=== PATIENT | male | born 1945 | race Caucasian/White ===

== ENCOUNTER 2019-06-30 22:39 | Observation (INO) | payer MEDICARE, BC, SELFPAY ==
[2019-06-30 22:46] VITALS: BMI 33.0
[2019-06-30 23:15] LABS: Add Manual Diff / Slide Review NO; Basophils Absolute Auto 0 /uL (0-100); Basophils Percent Auto 0.5 % (0-2); Eosinophils Absolute Auto 0 /uL (0-450); Eosinophils Percent Auto 0.7 % (2-4); Hematocrit 36.6 % (41-53); Lymphocytes Absolute Auto 600 /uL (1100-4500); Lymphocytes Percent Auto 9.7 % (25-40); Mean Corpuscular HGB Conc 32.7 % (30-36); Mean Corpuscular Hemoglobin 30.6 PG (26-34); Mean Corpuscular Volume 93.6 fL (80-100); Monocytes Absolute Auto 700 /uL (0-900); Neutrophils Absolute Auto 4700 /uL (1500-7000); Neutrophils Percent Auto 77.1 % (50-75); Platelet Count 168 X10^3/uL (150-400); Red Cell Distribution Width 17.8 % (11.6-14.8); White Blood Cell Count 6.1 X10^3/uL (4.5-11.0)
[2019-06-30 23:19] LABS: INR 3.6 (0.9-1.3); Prothrombin Time 40.8 SECONDS (10.1-12.7)
[2019-06-30 23:22] LABS: PTT Partial Thromboplastin Tim 51 SECONDS (26.4-36.2)
[2019-07-01] VITALS (12 sets, daily range): BP systolic 138–154; BP diastolic 67–97; PULSE 92–108; RESP 16–20; TEMP 36.5–38.3; O2SAT 93–97; BMI 33.5
[2019-07-01] MEDS: OXYMETAZOLINE NASAL SPRAY 30 ML 2 SPRAYS NASAL (00:09)
[2019-07-01] MEDS: TRANEXAMIC ACID 1,000 MG VIAL 1000 MG MM (00:11)
[2019-07-01] MEDS: LIDOCAINE 2% (UROJET) 5 ML GEL TOP (00:12)
--- NOTE | 2019-07-01 00:23 | ED_ITS ---
HPI - Epistaxis General Chief complaint: Nasal Problem Stated complaint: nose bleed Time Seen by Provider: 06/30/19 23:33 Source: patient Mode of arrival: Ambulatory Limitations: no limitations History of Present Illness HPI Narrative: Chief complaint: Epistaxis History of present illness: The patient is a 73-year-old male who has a history of atrial fibrillation for which she is on warfarin. On June 14 the patient was seen in [facility] by an ENT doc for persistent nosebleed. A balloon was placed in his nose in the emergency department and was seen in follow-up by ENT to remove the balloon. The bleeding had stopped and no cauterization was performed. Today the patient developed profuse nose bleed from the left nares and is on his warfarin. The patient denies any injury or fall. The nose just started to spontaneously bleed. The patient denies a history of asthma and diabetes mellitus but admits to history of hypertension previous myocardial infarction and COPD. The patient used to smoke 40 years ago. The patient complains that he has had a persisting congested cough and his chest is rattling. He denies any fever chills or sweats. He has had a nonproductive cough without any significant shortness of breath more than usual. He has had no chest pain palpitations dizziness abdominal pain nausea vomiting diarrhea or troubles urinating. Related Data Home Medications Medication Instructions Recorded Confirmed Multi Vitamin 1 tab PO DAILY 07/01/19 07/01/19 PreserVision AREDS-2 2 tab PO DAILY 07/01/19 07/01/19 allopurinol 100 mg PO DAILY 07/01/19 07/01/19 cyanocobalamin (vitamin B-12) 1,000 mcg PO DAILY 07/01/19 07/01/19 [Vitamin B-12] diltiazem HCl [Cartia XT] 120 mg PO DAILY 07/01/19 07/01/19 ferrous sulfate 1 tab PO DAILY 07/01/19 07/01/19 gabapentin See Rx Instructions .ROUTE .COMPLEX 07/01/19 07/01/19 lisinopril 5 mg PO DAILY 07/01/19 07/01/19 magnesium oxide 800 mg PO DAILY 07/01/19 07/01/19 mycophenolate mofetil [CellCept] 500 mg PO BID 07/01/19 07/01/19 omeprazole 20 mg PO Q OTHER DAY 07/01/19 07/01/19 prednisone 5 mg PO DAILY 07/01/19 07/01/19 rosuvastatin 20 mg PO BEDTIME 07/01/19 07/01/19 tacrolimus 0.5 mg PO QPM 07/01/19 07/01/19 tacrolimus 1 mg PO QAM 07/01/19 07/01/19 tamsulosin 0.4 mg PO DAILY 07/01/19 07/01/19 torsemide 40 mg PO DAILY 07/01/19 07/01/19 Allergies Allergy/AdvReac Type Severity Reaction Status Date / Time cephalexin [From Keflex] Allergy Verified 06/30/19 22:45 Review of Systems Review of Systems ROS Unobtainable: All systems reviewed & are unremarkable except as noted in HPI and below Patient History Medical History Chronic atrial fibrillation (Acute) Chronic bronchitis (Inactive) Current use of intermediate card tender anticoagulation (Acute) History of renal dialysis (Acute) Hyperlipidemia (Acute) Peripheral neuropathy (Acute) Recurrent epistaxis (Acute) Surgical History History of ankle surgery (Acute) History of kidney transplant (Acute) Family History Father Cancer Mother Vascular disease Blood clot in vein Brother Obese Social History household members: spouse Smoking Status: Never smoker alcohol intake: current Smoking Status: Never smoker alcohol intake frequency: 3 or more drinks per day Substance Use Type: does not use Exam Narrative Exam Narrative: PHYSICAL EXAM: CONSTITUTIONAL: Awake, Alert, Oriented, Coherent, Cooperative in mild to moderate distress with his nose packed with gauze and a clamp placed on his nose. On initial exam there was no blood draining in the posterior pharynx.. HEAD: AT/NC EENT: PERRL, FROM of eyes, no discharge, Evidence of epistaxis but bleeding seemed to stop and not be active on initial exam. Oral mucosa is moist and pink, posterior pharynx is without erythema or exudate. NECK: Supple, no obvious JVD, Trachea is midline without stridor, no palpable LN or masses. SPINE: No gross deformity, no palpable tenderness of the cervical, thoracic, l umbar or sacral spine. No CVA tenderness. THORAX: No deformity, retractions, chest wall tenderness, subcutaneous air or crepitice. LUNGS: Inspiratory crackles noted in the right lateral mid lung field and posterior lung field with a few expiratory rhonchi that cleared with coughing. The crackles did not. HEART: Rhythm was irregular irregular with variable distant S1-S2. The patient was tachycardic. ABDOMEN: Soft, non-tender, normal bowel sounds without guarding, rebound, rigidity or palpable mass EXTREMITIES: No edema, cyanosis, deformity or tenderness. SKIN: No rash, bruising, petechiae or purpura. NEURO: Awake, alert, oriented, conversive, cranial nerves II-XII are symmetrical and normal, moves all 4 extremities and is ambulatory Initial Vital Signs Initial Vital Signs: Vital Signs Pulse Rate 104 H 07/01/19 01:00 Respiratory Rate 16 07/01/19 01:00 Pulse Oximetry 94 07/01/19 01:00 Course Course Course Narrative: 0023: I initially examined the patient and he had a nasal pa cking had no blood in his posterior pharynx. After I set the patient up to listen to his lungs he started bleeding again to the posterior pharynx. When I returned with the arm rhino rockets he was still bleeding and filled a basin with blood. He denied any tachycardia being dizzy or lightheaded. The balloons of the rhino rockets were saturated with transient transaminitis acid and inserted in his right and left naris and inflated. 5 mg of vitamin K was ordered for the patient and fresh frozen plasma because of the profuse bleeding. He is on warfarin and his protime is 40 0.8 seconds a repeat hemoglobin hematocrit will be ordered on the patient. An IV will be started on the patient and I had bolus of normal saline administered 0033: The patient has been coughing incessantly. His bleeding seems to have slowed and is not feeling a basin or having profuse bleeding down his posterior pharynx after his nose was packed bilaterally with rhino rockets saturated with TXA 0234 I discussed the patient with with Dr. Fraire that ears nose throat doctor who was on-call and has agreed to consult the patient. I spoke with Dr. Spaulding who has agreed to admit the patient and evaluate his COPD chronic bronchitis cough and his warfarin coagulopathy causing his epistaxis. The patient will be admitted observation status. Orders Ordered: Discontinued Medications Acetaminophen (Tylenol) 650 mg PO Q6HR PRN PRN Reason: Fever/Mild Pain (1-3) Last Admin: 07/01/19 05:05 Dose: 650 mg Documented by: GELA Albuterol (Ventolin) 2.5 mg INH [id number] PRN PRN Reason: Shortness Of Breath Albuterol/Ipratropium (Duoneb) 3 ml INH NOW ONE Stop: 07/01/19 00:27 Last Admin: 07/01/19 00:59 Dose: 3 ml Documented by: SATURNINO Albuterol/Ipratropium (Duoneb) 3 ml INH RTQ6HR PRN PRN Reason: Shortness Of Breath Allopurinol (Zyloprim) 100 mg PO DAILY [facility] Last Admin: 07/01/19 13:15 Dose: 100 mg Documented by: HOMAR Cyanocobalamin (Vitamin B-12) 1,000 mcg PO DAILY [facility] Last Admin: 07/01/19 13:14 Dose: 1,000 mcg Documented by: HOMAR Diltiazem HCl (Cardizem Cd) 120 mg PO DAILY [facility] Last Admin: 07/01/19 13:15 Dose: 120 mg Documented by: HOMAR Ferrous Sulfate (Ferrous Sulfate) 325 mg PO DAILY [facility] Last Admin: 07/01/19 13:14 Dose: 325 mg Documented by: HOMAR Gabapentin (Neurontin) 300 mg PO BID@1500,2100 [facility] Last Admin: 07/01/19 13:25 Dose: Not Given Documented by: HOMAR Gabapentin (Neurontin) 600 mg PO DAILY [facility] Last Admin: 07/01/19 13:14 Dose: 600 mg Documented by: HOMAR Tranexamic Acid 1,000 mg/ (Sodium Chloride) 100 mls @ 400 mls/hr IV NOW ONE Stop: 06/30/19 23:59 Last Admin: 07/01/19 02:30 Dose: Not Given Documented by: TAVO Phytonadione 5 mg/ Dextrose 50.5 mls @ 101 mls/hr IV NOW ONE Stop: 07/01/19 00:20 Last Infusion: 07/01/19 02:27 Dose: 0 mls/hr Documented by: Admin: 07/01/19 01:02 Dose: 101 mls/hr Documented by: TAVO Sodium Chloride (Normal Saline 0.9%) 1,000 mls @ 1,000 mls/hr IV BOLUS ONE Stop: 07/01/19 01:24 Last Infusion: 07/01/19 03:39 Dose: 0 mls/hr Documented by: Admin: 07/01/19 01:30 Dose: 1,000 mls/hr Documented by: TAVO Lidocaine HCl (Xylocaine Jelly 2%) 1 ml TOP NOW ONE Stop: 07/01/19 00:02 Last Admin: 07/01/19 02:29 Dose: Not Given Documented by: TAVO Lidocaine HCl (Urojet) 5 ml TOP NOW ONE Stop: 07/01/19 00:05 Last Admin: 07/01/19 00:12 Dose: 5 ml Documented by: DEVENDRA Lisinopril (Zestril) 5 mg PO DAILY [facility] Last Admin: 07/01/19 13:14 Dose: 5 mg Documented by: HOMAR Lutein (Ocuvite/Lutein) 2 cap PO DAILY [facility] Last Admin: 07/01/19 13:15 Dose: 2 cap Documented by: HOMAR Magnesium Oxide (Mag Ox) 800 mg PO DAILY [facility] Last Admin: 07/01/19 13:15 Dose: 800 mg Documented by: HOMAR Methylprednisolone (Solu-Medrol 125 Mg Vial) 125 mg IV NOW ONE Stop: 07/01/19 00:27 Last Admin: 07/01/19 01:02 Dose: 125 mg Documented by: TAVO Mycophenolate Mofetil (Cellcept) 500 mg PO BID [facility] Last Admin: 07/01/19 13:16 Dose: 500 mg Documented by: HOMAR Naloxone HCl (Narcan) 0.2 mg IV Q2MIN PRN PRN Reason: Opiate Reversal Ondansetron HCl (Zofran) 4 mg IV Q8HR PRN PRN Reason: Nausea And Vomiting Oxymetazoline HCl (Afrin) 2 sprays NASAL NOW ONE Stop: 07/01/19 00:07 Last Admin: 07/01/19 00:09 Dose: 2 sprays Documented by: DEVENDRA Prednisone (Deltasone) 5 mg PO DAILY [facility] Last Admin: 07/01/19 13:15 Dose: 5 mg Documented by: HOMAR Rosuvastatin Calcium (Crestor) 20 mg PO BEDTIME [facility] Sodium Chloride (Normal Saline 0.9% Flush) 10 ml IV PRN PRN PRN Reason: Flush Last Admin: 07/01/19 13:16 Dose: 10 ml Documented by: HOMAR Sodium Chloride (Normal Saline 0.9% Flush) 10 ml IV BID [facility] Tacrolimus (Prograf) 1 mg PO DAILY [facility] Last Admin: 07/01/19 13:16 Dose: 1 mg Documented by: HOMAR Tacrolimus (Prograf) 0.5 mg PO BEDTIME [facility]I Tamsulosin HCl (Flomax) 0.4 mg PO DAILY [facility] Last Admin: 07/01/19 13:14 Dose: 0.4 mg Documented by: HOMAR Torsemide (Demadex) 40 mg PO DAILY [facility] Last Admin: 07/01/19 13:15 Dose: 40 mg Documented by: HOMAR Tranexamic Acid (Cyklokapron) 1,000 mg MM NOW ONE Stop: 07/01/19 00:02 Last Admin: 07/01/19 00:11 Dose: 1,000 mg Documented by: DEVENDRA Vital Signs Vital signs: Vital Signs - 8 hr 07/01/19 01:00 07/01/19 01:54 07/01/19 02:05 Temperature 99.3 F 99.8 F H Pulse Rate 104 H 101 H 103 H Respiratory Rate 16 19 19 Blood Pressure 138/78 146/70 H Pulse Oximetry 94 MDM - Epistaxis Medical Records Attestation: I reviewed the patient's medical records. Lab Data Attestation: I reviewed the patient's lab results. Result diagrams: 07/01/19 02:50 07/01/19 02:50 Labs: Lab Results 06/30/19 06/30/19 06/30/19 Range/Units 23:03 23:03 23:03 WBC 6.1 (4.5-11.0) X10^3/uL RBC 3.90 L (4.5-5.9) X10^6/uL Hgb 12.0 L (13.5-17.5) g/dL Hct 36.6 L (41-53) % MCV 93.6 (80-100) fL MCH 30.6 (26-34) PG MCHC 32.7 (30-36) % RDW 17.8 H (11.6-14.8) % Plt Count 168 (150-400) X10^3/uL Neut % (Auto) 77.1 H (50-75) % Lymph % (Auto) 9.7 L (25-40) % Grady % (Auto) 12.0 (3-14) % Eos % (Auto) 0.7 L (2-4) % Baso % (Auto) 0.5 (0-2) % Neut # (Auto) 4700 (9931-3045) /uL Lymph # (Auto) 600 L (8750-1270) /uL Grady # (Auto) 700 (0-900) /uL Eos # (Auto) 0 (0-450) /uL Baso # (Auto) 0 (0-100) /uL PT 40.8 H (10.1-12.7) SECONDS INR 3.6 H (0.9-1.3) APTT 51 H (26.4-36.2) SECONDS Sodium 138 (137-145) mmol/L Potassium 4.2 (3.4-5.1) mmol/L Chloride 100 (98-107) mmol/L Carbon Dioxide 27 (22-32) mmol/L BUN 28 H (9-20) mg/dL Creatinine 1.00 (0.66-1.25) mg/dL Estimated GFR > 60.0 (>60) mL/min BUN/Creatinine Ratio 28.0 H (6-22) Glucose 102 (80-110) mg/dL Calcium 11.6 H (8.4-10.2) mg/dL Magnesium (1.6-2.3) mg/dL Total Bilirubin 0.5 (0.2-1.3) mg/dL AST 26 (17-59) IU/L ALT 15 (<50) IU/L Alkaline Phosphatase 106 (38-126) U/L Troponin I < 0.012 (0.01-0.034) ng/mL NT-Pro-B Natriuret Pep 2390 H (<450) pg/mL Total Protein 7.3 (6.3-8.2) g/dL Albumin 4.4 (3.5-5.0) g/dL Globulin 2.9 (1.7-4.1) g/dL Albumin/Globulin Ratio 1.5 (1.0-2.8) Blood Type 07/01/19 07/01/19 07/01/19 Range/Units 00:40 00:40 02:50 WBC (4.5-11.0) X10^3/uL RBC (4.5-5.9) X10^6/uL Hgb 11.0 L (13.5-17.5) g/dL Hct 33.4 L (41-53) % MCV (80-100) fL MCH (26-34) PG MCHC (30-36) % RDW (11.6-14.8) % Plt Count (150-400) X10^3/uL Neut % (Auto) (50-75) % Lymph % (Auto) (25-40) % Grady % (Auto) (3-14) % Eos % (Auto) (2-4) % Baso % (Auto) (0-2) % Neut # (Auto) (3488-0214) /uL Lymph # (Auto) (5641-6016) /uL Grady # (Auto) (0-900) /uL Eos # (Auto) (0-450) /uL Baso # (Auto) (0-100) /uL PT (10.1-12.7) SECONDS INR (0.9-1.3) APTT (26.4-36.2) SECONDS Sodium (137-145) mmol/L Potassium (3.4-5.1) mmol/L Chloride (98-107) mmol/L Carbon Dioxide (22-32) mmol/L BUN (9-20) mg/dL Creatinine (0.66-1.25) mg/dL Estimated GFR (>60) mL/min BUN/Creatinine Ratio (6-22) Glucose (80-110) mg/dL Calcium (8.4-10.2) mg/dL Magnesium 1.9 (1.6-2.3) mg/dL Total Bilirubin (0.2-1.3) mg/dL AST (17-59) IU/L ALT (<50) IU/L Alkaline Phosphatase (38-126) U/L Troponin I (0.01-0.034) ng/mL NT-Pro-B Natriuret Pep (<450) pg/mL Total Protein (6.3-8.2) g/dL Albumin (3.5-5.0) g/dL Globulin (1.7-4.1) g/dL Albumin/Globulin Ratio (1.0-2.8) Blood Type O Positive 07/01/19 Range/Units 02:50 WBC (4.5-11.0) X10^3/uL RBC (4.5-5.9) X10^6/uL Hgb (13.5-17.5) g/dL Hct (41-53) % MCV (80-100) fL MCH (26-34) PG MCHC (30-36) % RDW (11.6-14.8) % Plt Count (150-400) X10^3/uL Neut % (Auto) (50-75) % Lymph % (Auto) (25-40) % Grady % (Auto) (3-14) % Eos % (Auto) (2-4) % Baso % (Auto) (0-2) % Neut # (Auto) (1754-1692) /uL Lymph # (Auto) (0756-4252) /uL Grady # (Auto) (0-900) /uL Eos # (Auto) (0-450) /uL Baso # (Auto) (0-100) /uL PT (10.1-12.7) SECONDS INR (0.9-1.3) APTT (26.4-36.2) SECONDS Sodium 136 L (137-145) mmol/L Potassium 4.1 (3.4-5.1) mmol/L Chloride 102 (98-107) mmol/L Carbon Dioxide 27 (22-32) mmol/L BUN 28 H (9-20) mg/dL Creatinine 0.80 (0.66-1.25) mg/dL Estimated GFR > 60.0 (>60) mL/min BUN/Creatinine Ratio 35.0 H (6-22) Glucose 117 H (80-110) mg/dL Calcium 10.8 H (8.4-10.2) mg/dL Magnesium (1.6-2.3) mg/dL Total Bilirubin (0.2-1.3) mg/dL AST (17-59) IU/L ALT (<50) IU/L Alkaline Phosphatase (38-126) U/L Troponin I (0.01-0.034) ng/mL NT-Pro-B Natriuret Pep (<450) pg/mL Total Protein (6.3-8.2) g/dL Albumin (3.5-5.0) g/dL Globulin (1.7-4.1) g/dL Albumin/Globulin Ratio (1.0-2.8) Blood Type ECG Data Attestation: I personally reviewed and interpreted this ECG as follows: Interpretation: The patient's EKG obtained at 0 0: 5A: 0 1 on July 01 reveals atrial fibrillation with a rapid ventricular response at 106. QRS is prolonged at 110 milliseconds. The patient has an occasional premature ventricular contraction. QTC is 393 milliseconds. The patient has a right axis deviation. He has nonspecific ST segment changes. There are no acute T-wave changes. She he has T-wave inversions in leads II 3. There is no evidence of acute ischemia at this time. Discharge Plan Departure Patient Disposition: Admitted as Observation Clinical Impression: Epistaxis, Chronic bronchitis, Acute exacerbation of chronic obstructive pulmonary disease Warfarin overdosage Qualifiers: Encounter type: initial encounter Injury intent: accidental or unintentional Qualified Code(s): T45.511A - Poisoning by anticoagulants, accidental (unintentional), initial encounter Discharge Date/Time: 07/01/19 04:21 Admit Date/Time: 07/01/19 03:48 Admit Provider: Altaf Spaulding
--- NOTE | 2019-07-01 00:26 | DI.RAD.S_ITS ---
PROCEDURE: XR CHEST 1V INDICATIONS: COPD persistent cough rales and rhonchi right lung TECHNIQUE: One view of the chest was acquired. COMPARISON: None. FINDINGS: Surgical changes and devices: None. Lungs and pleura: Lungs are clear. No pleural effusions or pneumothorax. Mediastinum: Mediastinal contours appear normal. Heart size is enlarged. There is aortic atherosclerosis. Bones and chest wall: No suspicious bony lesions. Overlying soft tissues appear unremarkable. IMPRESSION: Cardiomegaly without overt heart failure. No definite pneumonia. Dictated by: Miguel Angel Landin M.D. on 07/01/2019 at 0:31 Approved by: Miguel Angel Landin M.D. on 07/01/2019 at 0:35
[2019-07-01 00:44] LABS: Alanine Aminotransferase 15 IU/L (<50); Albumin 4.4 g/dL (3.5-5.0); Albumin Globulin Ratio 1.5 (1.0-2.8); Alkaline Phosphatase 106 U/L (38-126); Aspartate Aminotransferase 26 IU/L (17-59); Bilirubin Total 0.5 mg/dL (0.2-1.3); Blood Urea Nitrogen 28 mg/dL (9-20); Calcium 11.6 mg/dL (8.4-10.2); Carbon Dioxide 27 mmol/L (22-32); Chloride 100 mmol/L (98-107); Estimated Glomerular Filt Rate > 60.0 mL/min (>60); Globulin 2.9 g/dL (1.7-4.1); Glucose 102 mg/dL (80-110); HEMOLYSIS < 15 (0-50); Potassium 4.2 mmol/L (3.4-5.1); Sodium 138 mmol/L (137-145); Total Protein 7.3 g/dL (6.3-8.2)
[2019-07-01 00:56] LABS: NT-proBNP (BNP-Adult 18+) 2390 pg/mL (<450); Troponin I < 0.012 ng/mL (0.01-0.034)
[2019-07-01] MEDS: ALBUTEROL/IPRATROPIUM 3 ML AMPUL INH (00:59)
[2019-07-01] MEDS: methylPREDNISolone 125 MG/2 ML VIAL IV (01:02)
[2019-07-01] MEDS: PHYTONADIONE (VIT K1) 5 MG in DEXTROSE 5 % IN WATER 50 ML 101 ML IV (01:02)
[2019-07-01] MEDS: SODIUM CHLORIDE 0.9% 1,000 ML 1000 ML IV (01:30)
[2019-07-01 03:03] LABS: Hematocrit 33.4 % (41-53)
--- NOTE | 2019-07-01 03:44 | PM.HP.1 ---
History of Present Illness History of Present Illness Date Patient Seen: 07/01/19 Time Patient Seen: 03:20 Chief complaint: nose bleed Narrative: Mr. Peter Rendon is a 73-year-old male history significant for atrial fibrillation, long-term anticoagulation on Coumadin, hypertension, hyperlipidemia, COPD, neuropathy and kidney transplant who presents to the ER [facility] for recurrent epistaxis. Patient is visiting from [place] and has had prior nose bleeds most recently treated in [place] last week for which he had left over packing and saline. He packed his nose but continued to bleed therefore presented to the ER for treatment. The patient reports no recent illness, fevers or chills, nasal congestion or sore throat. He has had no chest pain or palpitations. He has history of COPD but indicates he does not routinely use bronchodilators. He denies recent cough or shortness of breath. He denies abdominal pain states he has been spitting out blood that has accumulated in the back throat. He has no heartburn and denies nausea vomiting, diarrhea or constipation. Denies difficulty urinating. He has a swollen left ankle since traumatic injury and surgery with chronic bilateral lower extremity edema left greater than right. Upon arrival to the ER the patient has a temperature 99.3?, heart rate of 104, blood pressure 138/78, respirations 16 saturating 94% on room air. Chest x-ray is obtained with findings of cardiomegaly without evidence of pulmonary edema or pneumonia. On laboratory analysis he has a white count of 6.1, hemoglobin of 12.0, hematocrit 36.6, platelets 168. His PT is 40.8 with an INR 3.6 and PTT of 51. On chemistries is electrolytes within normal range with a BUN of 28 and creatinine of 1.0 and a nonfasting glucose of 102. His LFTs are all within normal limits. He has an elevated proBNP at 2390 and a negative troponin at less than 0.012. In the ER the packing is removed with significant blood-loss for the ER provider filling of basin. Rhino rockets are inserted and the balloons inflated with no evidence of posterior bleeding. Patient is also treated with methylprednisolone and albuterol, vitamin K 5 mg, tranexmic acid and 1 unit of FFP for supratherapeutic INR. Dr. Fraire ENT was contacted by the ER provider and has agreed to consult. The patient is admitted to medicine service due to his multiple comorbidities for supratherapeutic INR and recurrent epistaxis. Patient History Medical History (Updated 07/01/19 @ 04:11 by [facility] Olmedo) Chronic atrial fibrillation (Acute) Chronic bronchitis (Inactive) Current use of assisted anticoagulation (Acute) History of renal dialysis (Acute) Hyperlipidemia (Acute) Peripheral neuropathy (Acute) Recurrent epistaxis (Acute) Surgical History (Updated 07/01/19 @ 04:11 by [facility] Olmedo) History of ankle surgery (Acute) History of kidney transplant (Acute) Family & Social History Family History (Updated 07/01/19 @ 04:12 by [facility] Olmedo) Father Cancer Mother Vascular disease Blood clot in vein Brother Obese Safety & Behavioral: Feels Safe in Current Yes Environment Tobacco & Substance use: Smoking Status Never smoker alcohol intake frequency 3 or more drinks per day Substance Use Type does not use Comment: The patient lives in a single family home in [place] with his to whom has been for 30 years. He endorses a history of his father dying the age of 50 from esophageal cancer, his mother 89 with vascular disease and blood clots. He has 1 brother who is obese but otherwise reportedly in good health. He has a children with no significant medical problems. Smoking: Patient is a former smoking quit at age 38 before which she smoked 1 pack per day. Alcohol: Patient endorses drinking 3 drinks per day. Substance use: Patient denies recreational pharmaceuticals, herbal or cannabis products. Advanced directives: The patient has formal advanced directive and states his wish to be FULL CODE. He designates his Sophie Smith to be his surrogate decision maker. Meds Home Medications and Allergies Home Medications Medication Instructions Recorded Confirmed Type Multi Vitamin 1 tab PO DAILY 07/01/19 07/01/19 History PreserVision AREDS-2 2 tab PO DAILY 07/01/19 07/01/19 History allopurinol 100 mg PO DAILY 07/01/19 07/01/19 History cyanocobalamin (vitamin B-12) 1,000 mcg PO DAILY 07/01/19 07/01/19 History [Vitamin B-12] diltiazem HCl [Cartia XT] 120 mg PO DAILY 07/01/19 07/01/19 History ferrous sulfate 1 tab PO DAILY 07/01/19 07/01/19 History gabapentin See Rx Instructions .ROUTE .COMPLEX 07/01/19 07/01/19 History lisinopril 5 mg PO DAILY 07/01/19 07/01/19 History magnesium oxide 800 mg PO DAILY 07/01/19 07/01/19 History mycophenolate mofetil [CellCept] 500 mg PO BID 07/01/19 07/01/19 History omeprazole 20 mg PO Q OTHER DAY 07/01/19 07/01/19 History prednisone 5 mg PO DAILY 07/01/19 07/01/19 History rosuvastatin 20 mg PO BEDTIME 07/01/19 07/01/19 History tacrolimus 0.5 mg PO QPM 07/01/19 07/01/19 History tacrolimus 1 mg PO QAM 07/01/19 07/01/19 History tamsulosin 0.4 mg PO DAILY 07/01/19 07/01/19 History torsemide 40 mg PO DAILY 07/01/19 07/01/19 History warfarin 5 mg PO DAILY 07/01/19 07/01/19 History Allergies Allergy/AdvReac Type Severity Reaction Status Date / Time cephalexin [From Keflex] Allergy Verified 06/30/19 22:45 Review of Systems Review of Systems Narrative: All systems reviewed and found unremarkable under discussed in the HPI above. Exam Vital Signs (past 8 hours): - 07/01/19 01:00 07/01/19 01:54 07/01/19 02:05 Temperature 99.3 F 99.8 F H Pulse Rate 104 H 101 H 103 H Respiratory Rate 16 19 19 Blood Pressure 138/78 146/70 H Pulse Oximetry 94 07/01/19 02:33 07/01/19 03:29 Temperature 99.9 F H 101 F H Pulse Rate 92 H Respiratory Rate 18 Blood Pressure 142/67 H Pulse Oximetry Oxygen Delivery Method Room Air Oxygen Flow Rate 0 Narrative Exam Narrative: GENERAL APPEARANCE: well developed, obese male with a BMI of 33.0, well-kempt, in no acute distress. HEENT: Normocephalic, PERRLA, conjunctiva clear, EOMs intact without nystagmus, bilateral bilateral rhino rockets in place, no active bleeding, no bleeding in the posterior pharynx, mucous membranes are moist and pink. NECK/THYROID: neck supple, no JVD, no carotid bruit, no thyromegaly, trachea midline. LYMPH NODES: no cervical or supraclavicular lymphadenopathy. SKIN: [facility], warm and dry, venous stasis changes bilateral lower extremities left greater than right HEART: Irregularly irregular rhythm, S1-S2, no murmur appreciated, laterally displaced PMI, no rubs or gallops, brisk capillary refill, 1+ right and 2+ left pedal edema. LUNGS: Mid expiratory wheeze right mid lung field, no coarseness, no basilar crackles, no cough on deep inspiration. CHEST: Symmetrical movement, no accessory muscle use, good tidal volume. ABDOMEN: Soft, round, tympanic to percussion, nontender to palpation, no guarding or peritoneal signs, no organomegaly, no flank tenderness, active bowel tones. EXTREMITIES: moves all extremities, strength is 5/5 and symmetrical, bilateral nonfunctional AV fistulas, no bruit or thrill. NEUROLOGIC: AAO x4, no focal neurologic deficits, cranial nerves II-XII grossly intact, neuropathy to mid lower leg. PSYCH: Good recall, linear thought process, cooperative, appropriate with stable behavior Objective Labs Result Diagrams: 07/01/19 02:50 06/30/19 23:03 Labs: Laboratory Results - last 24 hr 06/30/19 06/30/19 06/30/19 23:03 23:03 23:03 WBC 6.1 RBC 3.90 L Hgb 12.0 L Hct 36.6 L MCV 93.6 MCH 30.6 MCHC 32.7 RDW 17.8 H Plt Count 168 Neut % (Auto) 77.1 H Lymph % (Auto) 9.7 L Ballard % (Auto) 12.0 Eos % (Auto) 0.7 L Baso % (Auto) 0.5 Neut # (Auto) 4700 Lymph # (Auto) 600 L Ballard # (Auto) 700 Eos # (Auto) 0 Baso # (Auto) 0 PT 40.8 H INR 3.6 H APTT 51 H Sodium 138 Potassium 4.2 Chloride 100 Carbon Dioxide 27 BUN 28 H Creatinine 1.00 Estimated GFR > 60.0 BUN/Creatinine Ratio 28.0 H Glucose 102 Calcium 11.6 H Total Bilirubin 0.5 AST 26 ALT 15 Alkaline Phosphatase 106 Troponin I < 0.012 NT-Pro-B Natriuret Pep 2390 H Total Protein 7.3 Albumin 4.4 Globulin 2.9 Albumin/Globulin Ratio 1.5 Blood Type 07/01/19 07/01/19 00:40 02:50 WBC RBC Hgb 11.0 L Hct 33.4 L MCV MCH MCHC RDW Plt Count Neut % (Auto) Lymph % (Auto) Ballard % (Auto) Eos % (Auto) Baso % (Auto) Neut # (Auto) Lymph # (Auto) Ballard # (Auto) Eos # (Auto) Baso # (Auto) PT INR APTT Sodium Potassium Chloride Carbon Dioxide BUN Creatinine Estimated GFR BUN/Creatinine Ratio Glucose Calcium Total Bilirubin AST ALT Alkaline Phosphatase Troponin I NT-Pro-B Natriuret Pep Total Protein Albumin Globulin Albumin/Globulin Ratio Blood Type O Positive Assessment & Plan Assessment & Plan narrative: This is a 73-year-old male patient who is traveling and visiting [place] from [place]. He has experienced recurrent epistaxis last 1 week ago which time he had his nose packed in [place]. He had recurrent episode tonight with significant bleeding complicated by anticoagulation with a supratherapeutic INR at 3.6 on warfarin that he takes for atrial fibrillation. 1. Acute epistaxis, present on admission, active -Patient with recurrent epistaxis this evening last episode 1 week ago. Patient time to packing at home without success. -Rhino rockets braced bilateral nares with control of bleeding with no posterior bleeding noted. -Hemoglobin upon arrival was 12.0, on re-evaluation 3 hours later is 11.0. -Patient was supratherapeutic on INR, received vitamin K 5 mg, for S frozen plasma 1 unit and tranexamic acid 1000 mg IV. -Dr. Fraire, ENT, has been contacted through the emergency department and agreed to consult, we appreciate his evaluation, treatment and recommendations. -No continue blood loss, will follow CBC. 2. Chronic atrial fibrillation, controlled rate, present on admission, active -Currently irregularly irregular rhythm with a controlled rate. No complaints of chest pain or shortness of breath. -Twelve lead EKG identifies atrial fibrillation with RVR 106 beats per minute with multifocal PVCs, diffuse T-wave abnormalities. -Troponin is negative at <0.012, proBNP is noted to be elevated at 2390 without evidence of pulmonary edema on exam or imaging. Magnesium is 1.9, potassium 4.2. -He is taking Cardizem CD 120 mg daily for rate control along with magnesium supplement. -Will hold warfarin until evaluation by Dr. Ayala ENT 3. Supratherapeutic INR on Coumadin, present on admission, active -Patient takes warfarin initially following traumatic ankle injury and surgery currently taking for atrial fibrillation. -Found the patient was taking more than prescribed dosage, patient's be taking one 5 mg tablet daily and has been taking 1.5 tablets daily. -Coagulations assessed on admission with a PT of 40.8, INR 3.6 and a PT T of 51 -Received vitamin K 5 mg, fresh frozen plasma 1 unit and tranexamic acid 1000 mg IV in the ER. -Will follow INR and restart warfarin following evaluation by Dr. Fraire, ENT and INR is within therapeutic level. 4. Chronic bronchitis, present on admission, active. -Patient denies complaints of shortness of breath or cough. He reports he does not routinely use inhaler medications. -Patient without dyspnea able to take deep breaths with mid expiratory wheezing right lung field. Patient is saturating low to mid 90s on room air. -Chest x-ray identifies cardiomegaly without pulmonary edema or pneumonia. -The patient received methylprednisolone 125 mg in the ER as well as and albuterol nebulizer treatment. -RT to consult, evaluate and treat. -DuoNeb every 6 hours as needed. -Albuterol nebulizer every 2 hours as needed. 5. Bilateral lower extremity edema, chronic, present on admission, stable -Chronic venous stasis changes, current edema described as typical per the patient. -Continue bowel regimen of torsemide 40 mg daily, and allopurinol 100 mg daily. 6. Essential hypertension, chronic, stable -Acceptable blood pressure upon arrival at 138/78. -Continue home regimen of lisinopril 5 mg daily. 7. Hyperlipidemia, chronic, stable. -Patient reports being on and off statin therapy. -continue current home regimen of rosuvastatin 20 mg daily. 8. Peripheral neuropathy, chronic bilateral lower extremities, stable. -Patient with chronic peripheral neuropathy to mid lower legs. -Continue home regimen of gabapentin 300 mg 2 capsules in the morning, 1 capsule mid day and 1 capsule night. 9. Status post kidney transplant, stable. -Patient had kidney injury as a child with progressive renal deterioration transitioning to dialysis for 9.5 years which was discontinued following kidney transplant. -Patient has AV fistulas bilateral arms that are nonfunctioning without bruit or thrill. -Patient maintains good renal function with a BUN elevated likely related to bleeding and creatinine 1.0. -Continue patient's multiple anti-rejection medications including prednisone 5 mg daily CellCept 500 mg twice daily, tacrolimus 1 mg q.a.m., 0.5 mg q.p.m.. 10. Gastroesophageal reflux disorder, chronic, stable. -Patient without present complaints of heartburn nausea. -Continue home medication omeprazole 20 mg every other day. 11. Alcohol abuse, present on admission, active. -patient endorses consuming at least 3 drinks daily. -last drink was this evening, denies complaints of withdrawal symptoms. -[facility] protocol to monitor. VTE prophylaxis: SCDs, supratherapeutic INR, holding warfarin. Diet: NPO pending ENT evaluation and possible need for surgical intervention. IVF: Saline lock. The patient is admitted to the hospital related to epistaxis with acute blood loss, supratherapeutic INR and risk for further complications or adverse events. The patient is admitted as an observation patient with expected length of stay to be less than 2 midnights. Scores GCS Radha coma scale eye opening: Spontaneous Radha coma scale verbal response: Orientated [place] coma scale motor response: Obey commands Radha coma scale total score: 15
--- NOTE | 2019-07-01 03:44 | PC.NURSE ---
Pt with fever after infusion of FFP, Provider aware, in room at time the temp was taken, order for tylenol to be given.
[2019-07-01 03:59] LABS: Magnesium 1.9 mg/dL (1.6-2.3)
[2019-07-01 04:10] LABS: Blood Urea Nitrogen 28 mg/dL (9-20); Calcium 10.8 mg/dL (8.4-10.2); Carbon Dioxide 27 mmol/L (22-32); Chloride 102 mmol/L (98-107); Estimated Glomerular Filt Rate > 60.0 mL/min (>60); Glucose 117 mg/dL (80-110); HEMOLYSIS < 15 (0-50); Potassium 4.1 mmol/L (3.4-5.1); Sodium 136 mmol/L (137-145)
[2019-07-01 04:31] LABS: INR 2.2 (0.9-1.3); Prothrombin Time 24.6 SECONDS (10.1-12.7)
[2019-07-01] MEDS: ACETAMINOPHEN 325 MG TABLET 650 MG PO (05:05)
--- NOTE | 2019-07-01 05:39 | PC.ADMIT ---
[address] Admission Note: The patient,Peter Rendon,73 y/o, was given written information regarding hospital policies, unit procedures and contact persons. Patient's smoking status: Never smoker. Vital Signs - 8 hr 07/01/19 01:00 07/01/19 01:54 07/01/19 02:05 Temperature 99.3 F 99.8 F H Pulse Rate 104 H 101 H 103 H Respiratory Rate 16 19 19 Blood Pressure 138/78 146/70 H Pulse Oximetry 94 07/01/19 02:33 07/01/19 03:29 07/01/19 04:17 Temperature 99.9 F H 101 F H 100.9 F H Pulse Rate 92 H 108 H Respiratory Rate 18 19 Blood Pressure 142/67 H 154/92 H Pulse Oximetry 94 07/01/19 05:05 07/01/19 05:11 Temperature 100.9 F H Pulse Rate 96 H Respiratory Rate 16 Blood Pressure Pulse Oximetry 93 Patient arrived on floor accompanied by ED PLUMBER'S HELPER and Sophie Smith @ [phone], transferred self to bed using cane, unsteady on feet and complaining of weakness, patient is a high fall risk. Oriented to room, NPO diet, medications, and health history. Patient has bilateral rhino rockets in place with tails taped to his forehead, serosang drainage from nose. Patient has bilateral non-functioning hemodialysis fistulas in wrists, extensive scaring to chest and back, dry skin with scales and hemosiderin staining to lower extremities. MERCANTILE REPORTER aware of patient's drinking history (3 or more drinks/night) with no orders for CIWA protocol. Patient is calm and cooperative with care, bed alarm on and functioning, call light in reach with education on function and purpose.
--- NOTE | 2019-07-01 07:50 | PC.NURSE ---
Addendum entered by Natalie Del Cid R.N. 07/01/19 15:53: At [address] Jerome, to wear simple masks when entering pt's room, pt has intermittent cough. Signage placed on door. CAT DRIVER aware Addendum entered by Natalie Del Cid R.N. 07/01/19 09:24: Updated pt's that Dr. Fraire will be in to see pt in late morning. Pt very tired this morning, O2 sat 91% on RA, on continuous O2 monitoring. Original Note: Day Shift- Received call from Dr. Fraire (#[phone]) via phone at 0745, plans to see pt in late morning. Update given regarding current pt status. Aware pt is NPO.
--- NOTE | 2019-07-01 12:55 | P.DS_ITS ---
History of Present Illness History of Present Illness Date Patient Seen: 07/01/19 Chief complaint: nose bleed Narrative: Written by Altaf COTTER: Mr. Peter Rendon is a 73-year-old male history significant for atrial fibrillation, long-term anticoagulation on Coumadin, hypertension, hyperlipidemia, COPD, neuropathy and kidney transplant [facility]. Patient is visiting from [place] and has had prior nose bleeds most recently treated in [place] last week for which he had left over packing and saline. He packed his nose but continued to bleed therefore presented to the ER for treatment. The patient reports no recent illness, fevers or chills, nasal congestion or sore throat. He has had no chest pain or palpitations. He has history of COPD but indicates he does not routinely use bronchodilators. He denies recent cough or shortness of breath. He denies abdominal pain states he has been spitting out blood that has accumulated in the back throat. He has no heartburn and denies nausea vomiting, diarrhea or constipation. Denies difficulty urinating. He has a swollen left ankle since traumatic injury and surgery with chronic bilateral lower extremity edema left greater than right. Upon arrival to the ER the patient has a temperature 99.3?, heart rate of 104, blood pressure 138/78, respirations 16 saturating 94% on room air. Chest x-ray is obtained with findings of cardiomegaly without evidence of pulmonary edema or pneumonia. On laboratory analysis he has a white count of 6.1, hemoglobin of 12.0, hematocrit 36.6, platelets 168. His PT is 40.8 with an INR 3.6 and PTT of 51. On chemistries is electrolytes within normal range with a BUN of 28 and creatinine of 1.0 and a nonfasting glucose of 102. His LFTs are all within normal limits. He has an elevated proBNP at 2390 and a negative troponin at less than 0.012. In the ER the packing is removed with significant blood-loss for the ER provider filling of basin. Rhino rockets are inserted and the balloons inflated with no evidence of posterior bleeding. Patient is also treated with methylprednisolone and albuterol, vitamin K 5 mg, tranexmic acid and 1 unit of FFP for supratherapeutic INR. Dr. Fraire ENT was contacted by the ER provider and has agreed to consult. The patient is admitted to medicine service due to his multiple comorbidities for supratherapeutic INR and recurrent epistaxis. Discharge Providers Provider Date of admission: 07/01/19 03:48 Discharge Date: 07/01/19 Consults: 07/01/19 03:39 Consult to Discharge Planning Routine Comment: Consult to Physician Routine Comment: Consulting Provider: Hector Fraire Reason for consultation: Recurrent epistaxis Has provider been notified: Yes 07/01/19 03:40 Consult to Respiratory Therapy Evaluate & Treat Comment: COPD, past smoker Physician Instructions: Evaluate and treat Discharge provider: Alicia Jerome DO Summary Hospital Course Discharge Diagnosis: 1. Acute epistaxis, present on admission. Resolved. 2. Supratherapeutic INR on warfarin, present on admission. Resolved. 3. Paroxysmal atrial fibrillation, chronic present on admission. Stable. 4. COPD, chronic bronchitis type, present on admission. Stable. 5. Bilateral lower extremity edema, chronic, present on admission. Stable. 6. Hypertension, chronic, present on admission. Stable. 7. Hyperlipidemia, chronic, present on admission. Stable. 8. Bilateral lower extremity peripheral neuropathy, chronic, present on admiss ion. Stable. 9. End-stage renal disease status post renal transplant, chronic, present on admission. Stable. 10. Gastroesophageal reflux disorder, chronic, present on admission. Stable. 11. Alcohol use disorder, chronic, present on admission. Stable. Hospital Course: Peter Rendon is a 73-year-old with a past medical history significant for hypertension, hyperlipidemia, paroxysmal atrial fibrillation on anticoagulation with warfarin, COPD, peripheral neuropathy, and previous end-stage renal disease on dialysis status post kidney transplant who presented to the ED for recurrent epistaxis. 1. Acute epistaxis, present on admission. Resolved. -Patient with recurrent epistaxis with previous episode 1 week ago. Patient time to packing at home without success. -Received bilateral Rhino rockets in nares with control of epistaxis and no evidence of posterior bleeding. -Initial hemoglobin 12.0 on admission. Repeat hemoglobin 11.0. Patient is hemodynamically stable without further signs of bleeding. -Reversed and held warfarin as below. -Consulted ENT, Dr. Fraire, for evaluation and treatment. Dr. Fraire cauterized nares but did not find significant source of bleed or exposed vessel. Recommended continue holding warfarin and have patient follow-up on 07/04/2019. -Continued monitoring H&H. 2. Supratherapeutic INR on warfarin, present on admission. Resolved. -Patient was inadvertently taking incorrect dose of warfarin. Patient is usually on warfarin 5 mg 1.5 tab daily and his warfarin dose had been lowered to 1 tab daily. Patient's be taking one 5 mg tablet daily and has been taking 1.5 tablets daily. -Coags on admission: PT 40.8, INR 3.6, and APTT 51. Received vitamin K 5mg IV, FFP 1 unit and tranexamic acid 1000 mg IV in the ED. Repeat INR 2.2. -Held warfarin due to epistaxis. [id number] score 3 with risk of VTE in next 1 year 3.2% making patient low risk short-term for discontinuation of anticoagulation. Continue holding warfarin until patient is able to follow up with Dr. Fraire of ENT on 07/04/2019. Repeat INR day prior to exam. Dr. Fraire will plan to instruct patient on when to continue home warfarin regimen. 3. Paroxysmal atrial fibrillation, chronic present on admission. Stable. -Patient in and out of sinus rhythm and atrial fibrillation with a controlled rate. No complaints of chest pain or shortness of breath. -EKG demonstrated atrial fibrillation with RVR heart rate 106 with multifocal PVCs, diffuse T-wave abnormalities. -Troponin is negative at <0.012. -ProBNP is noted to be elevated at 2390 without evidence of pulmonary edema on exam or imaging. Magnesium is 1.9, potassium 4.2. -Continue Cardizem CD 120 mg daily and magnesium supplementation for rate control. -Held warfarin for anticoagulation as above. 4. COPD, chronic bronchitis type, present on admission. Stable. -Does not represent acute COPD exacerbation -Patient endorses recent upper respiratory symptoms. He reports he does not routinely use inhaler medications. -Chest x-ray demonstrated cardiomegaly without pulmonary edema or pneumonia. -Received methylprednisolone 125 mg x1 and albuterol nebulizer treatment in ED for mild wheeze. Patient does not have any wheeze on exam and does not endorse shortness of breath. -Continued respiratory therapy evaluation treatment. Continued DuoNeb every 6 hours while awake as needed for shortness of breath or wheezing. 5. Bilateral lower extremity edema, chronic, present on admission. Stable. -Chronic bilateral lower extremity venous stasis dermatitis with mild pitting edema to ankles which is chronic and unchanged. -Continued home torsemide 40 mg daily. 6. Hypertension, chronic, present on admission. Stable. -Acceptable blood pressure upon arrival at 138/78. -Continued home lisinopril 5 mg daily. 7. Hyperlipidemia, chronic, present on admission. Stable. -Patient reports history of being on and off statin therapy. -Continued home rosuvastatin 20 mg daily. 8. Bilateral lower extremity peripheral neuropathy, chronic, present on admission. Stable. -Patient with chronic peripheral neuropathy to mid lower legs. -Continued home gabapentin 600 mg in the morning, 300 mg at noon and 300 mg at night. 9. End-stage renal disease status post renal transplant, chronic, present on admission. Stable. -Patient had kidney injury as a child with progressive renal deterioration transitioning to dialysis for 9.5 years which was discontinued following kidney transplant. 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 -Initial creatinine 1.0 and trended down to 0.80. Unclear baseline creatinine. Patient maintains good renal function with slightly elevated BUN due to recent epistasis with ingestion of blood. -Continued patient's multiple anti-rejection medications including: prednisone 5 mg daily, mycophenolate mofetil 500 mg twice daily, and tacrolimus 1 mg in the morning and 0.5 mg at night. 10. Gastroesophageal reflux disorder, chronic, present on admission. Stable. -Patient denies active symptoms of GERD. -Continued home omeprazole 20 mg every other day. 11. Alcohol use disorder, chronic, present on admission. Stable. -Patient endorses consuming at least 3 drinks daily with last drink on the evening of admission. Patient denies previous history of alcohol withdrawal, DTs or alcohol withdrawal seizures. -Monitored patient closely for signs and symptoms of alcohol withdrawal for which he did not displayed throughout hospitalization. Low threshold to start CIWA protocol. Exam Vital Signs (past 8 hours): - 07/01/19 05:05 07/01/19 05:11 07/01/19 08:50 Temperature 100.9 F H 98.7 F Pulse Rate 96 H 93 H Respiratory Rate 16 20 Blood Pressure 147/91 H Pulse Oximetry 93 94 07/01/19 08:54 Temperature Pulse Rate 93 H Respiratory Rate 16 Blood Pressure Pulse Oximetry 94 Oxygen Delivery Method Room Air Oxygen Flow Rate 0 Narrative Exam Narrative: General: Elderly gentleman sitting in bed and in no acute distress, well- developed, well-nourished, appropriately interactive. HEENT: Normocephalic, atraumatic. External ears without defect. Pupils equal, round, and reactive to light. Anicteric sclerae, moist conjunctivae, and no lid lag. Oropharynx free of erythema, cobble stoning or blood. Moist oral mucosa. Left nare with packing gauze in place. Neck: Supple with full range of motion. No jugular venous distension. No lymphadenopathy or thyromegaly. Cardiovascular: Regular rate and rhythm without murmurs, rubs, or gallops appre ciated Pulmonary: Clear to auscultation bilaterally without crackles, wheezes, or rhonchi. Normal respiratory effort with no use of accessory muscles. Abdomen: Soft, bowel sounds present nontender, nondistended. No hepatosplenomegaly or masses appreciated. Extremities: No clubbing or cyanosis. Bilateral lower extremity venous stasis dermatitis with mild pitting edema. Skin: Normal temperature and turgor. No rash, ulcers, or subcutaneous nodules appreciated. Extensive scarring of skin throughout entire upper chest and back due to previous skin infection as a child. Neurological: Cranial nerves grossly intact. Psychiatric: Normal mood and affect. Alert and oriented to person, place, and time. Objective Labs Result Diagrams: 07/01/19 02:50 07/01/19 02:50 Labs: Laboratory Results - last 24 hr 06/30/19 06/30/19 06/30/19 23:03 23:03 23:03 WBC 6.1 RBC 3.90 L Hgb 12.0 L Hct 36.6 L MCV 93.6 MCH 30.6 MCHC 32.7 RDW 17.8 H Plt Count 168 Neut % (Auto) 77.1 H Lymph % (Auto) 9.7 L [place] % (Auto) 12.0 Eos % (Auto) 0.7 L Baso % (Auto) 0.5 Neut # (Auto) 4700 Lymph # (Auto) 600 L [place] # (Auto) 700 Eos # (Auto) 0 Baso # (Auto) 0 PT 40.8 H INR 3.6 H APTT 51 H Sodium 138 Potassium 4.2 Chloride 100 Carbon Dioxide 27 BUN 28 H Creatinine 1.00 Estimated GFR > 60.0 BUN/Creatinine Ratio 28.0 H Glucose 102 Calcium 11.6 H Magnesium Total Bilirubin 0.5 AST 26 ALT 15 Alkaline Phosphatase 106 Troponin I < 0.012 NT-Pro-B Natriuret Pep 2390 H Total Protein 7.3 Albumin 4.4 Globulin 2.9 Albumin/Globulin Ratio 1.5 Blood Type 07/01/19 07/01/19 07/01/19 00:40 00:40 02:50 WBC RBC Hgb 11.0 L Hct 33.4 L MCV MCH MCHC RDW Plt Count Neut % (Auto) Lymph % (Auto) [place] % (Auto) Eos % (Auto) Baso % (Auto) Neut # (Auto) Lymph # (Auto) [place] # (Auto) Eos # (Auto) Baso # (Auto) PT INR APTT Sodium Potassium Chloride Carbon Dioxide BUN Creatinine Estimated GFR BUN/Creatinine Ratio Glucose Calcium Magnesium 1.9 Total Bilirubin AST ALT Alkaline Phosphatase Troponin I NT-Pro-B Natriuret Pep Total Protein Albumin Globulin Albumin/Globulin Ratio Blood Type O Positive 07/01/19 07/01/19 02:50 04:03 WBC RBC Hgb Hct MCV MCH MCHC RDW Plt Count Neut % (Auto) Lymph % (Auto) [place] % (Auto) Eos % (Auto) Baso % (Auto) Neut # (Auto) Lymph # (Auto) [place] # (Auto) Eos # (Auto) Baso # (Auto) PT 24.6 H D INR 2.2 H APTT Sodium 136 L Potassium 4.1 Chloride 102 Carbon Dioxide 27 BUN 28 H Creatinine 0.80 Estimated GFR > 60.0 BUN/Creatinine Ratio 35.0 H Glucose 117 H Calcium 10.8 H Magnesium Total Bilirubin AST ALT Alkaline Phosphatase Troponin I NT-Pro-B Natriuret Pep Total Protein Albumin Globulin Albumin/Globulin Ratio Blood Type Discharge Plan Discharge Plan Patient Disposition: Home Discharge comment: You are being discharged home. Please follow-up with Dr. Fraire at your scheduled appointment this Tuesday07/04/2019 regarding your nose bleed. Please do not take warfarin until you follow-up with Dr. Fraire. Please have your INR checked on Tuesday07/03/2019 prior to your appointment. If everything looks to be healing well and no further interventions necessary you will likely be able to restart your home dose of warfarin. Please follow-up with your PCP once you return to [place] regarding your hospitalization and nose bleed. Discharge orders & Medications Prescriptions: Continued torsemide 20 mg tablet 40 mg PO DAILY RF: 0 mycophenolate mofetil [CellCept] 250 mg Capsule 500 mg PO BID RF: 0 prednisone 5 mg Tablet 5 mg PO DAILY RF: 0 cyanocobalamin (vitamin B-12) [Vitamin B-12] 1,000 mcg Tablet 1,000 mcg PO DAILY RF: 0 allopurinol 100 mg tablet 100 mg PO DAILY RF: 0 tamsulosin 0.4 mg capsule 0.4 mg PO DAILY RF: 0 gabapentin 300 mg capsule See Rx Instructions .ROUTE .COMPLEX RF: 0 omeprazole 20 mg capsule,delayed release(DR/EC) 20 mg PO Q OTHER DAY RF: 0 diltiazem HCl [Cartia XT] 120 mg capsule,extended release 24hr 120 mg PO DAILY RF: 0 lisinopril 5 mg tablet 5 mg PO DAILY RF: 0 rosuvastatin 20 mg tablet 20 mg PO BEDTIME RF: 0 magnesium oxide 400 mg magnesium Capsule 800 mg PO DAILY RF: 0 Multi Vitamin tablet 1 tab PO DAILY RF: 0 PreserVision AREDS-2 tablet 2 tab PO DAILY RF: 0 ferrous sulfate 65 mg tablet 1 tab PO DAILY RF: 0 tacrolimus 1 mg capsule 1 mg PO QAM RF: 0 tacrolimus 0.5 mg capsule 0.5 mg PO QPM RF: 0 Discontinued warfarin 5 mg tablet 5 mg PO DAILY RF: 0 Other Ambulatory Orders: Prothrombin Time INR (Routine) Timeframe: [id number] Facility: [facility] - Location: Laboratory Ordered By: Alicia Jerome Follow up/Referrals: Hector Fraire MD [Physician] - (Dr. Fraire would like to see you this coming Tuesday07/04/19, please call office for appointment) Diet/Activity/Treatments Diet: Diet as Tolerated, Low-fat, Low-sodium and Low-cholesterol Activity: Activity as tolerated with cane Skin/Wound/Dressing Care Other wound treatment: Please leave packing gauze in your nose until follow-up with Dr. Fraire Visit Report/Discharge Packet Instructions: DI for Chronic Obstructive Pulmonary Disease, DI for Nosebleed, DI for Warfarin Therapy Discharge Data Attending Provider: Altaf Spaulding Admit Date/Time: 07/01/19 03:48 Quality VTE Deep Vein Thrombosis/Pulmonary Embolism Present on Admission: No
[2019-07-01] MEDS: lisinopriL 5 MG TABLET PO (13:14)
[2019-07-01] MEDS: CYANOCOBALAMIN (VITAMIN B-12) 500 MCG TABLET 1000 MCG PO (13:14)
[2019-07-01] MEDS: TAMSULOSIN 0.4 MG CAPSULE PO (13:14)
[2019-07-01] MEDS: FERROUS SULFATE 325 MG TABLET PO (13:14)
[2019-07-01] MEDS: GABAPENTIN 600 MG TABLET PO (13:14)
[2019-07-01] MEDS: VIT C/E/ZN/COPPR/LUTEIN/ZEAXAN CAPSULE 2 CAP PO (13:15)
[2019-07-01] MEDS: dilTIAZem CD 120 MG CAP PO (13:15)
[2019-07-01] MEDS: TORSEMIDE 10 MG TABLET 40 MG PO (13:15)
[2019-07-01] MEDS: allopurinoL 100 MG TABLET PO (13:15)
[2019-07-01] MEDS: MAGNESIUM OXIDE 400 MG TABLET 800 MG PO (13:15)
[2019-07-01] MEDS: predniSONE 5 MG TABLET PO (13:15)
[2019-07-01] MEDS: MYCOPHENOLATE MOFETIL 500 MG TABLET PO (13:16)
[2019-07-01] MEDS: SODIUM CHLORIDE 0.9% FLUSH 10 ML IV (13:16)
[2019-07-01] MEDS: TACROLIMUS 0.5 MG CAPSULE 1 MG PO (13:16)
--- NOTE | 2019-07-01 16:22 | CM.DANOTE ---
Addendum entered by Stacia Ann LPN 07/01/19 16:27: Payer: Medicare and [facility]. Admission status: OBS: per UR NICOLE Foy Original Note: DCP: assessment: initiated. Case received, discussed in Team Rounds and with update by Dr. Jerome later in the day. Pt is a 73 year old male who admitted this morning with recurrent bleeding in nose after prior treatment for same. Pt on Warfarin. ENT was consulted, saw pt and Dr. Jerome confirms now that pt is ok'd for d/c to home setting. He will follow up with his PCP when he returns to [place]. Until then with access ER or Urgent care clinic if further assist is needed.
--- NOTE | 2019-07-01 16:33 | PC.NURSE ---
Discharge Note Patient A&O, VSS, RA, tele baseline afib CVR, no complaints of pain or discomfort. Thorough discharge instructions given to patient along with medication changes and follow-up instructions, no questions or concerns per patient. Telemetry and PIV discontinued. Patient assisted with dressing self. All belonging, home medications and discharge packet packed and given to patient. Patient taken down via wheelchair by this RN to private vehicle with .
--- NOTE | 2019-07-01 17:47 | CONS_ITS ---
DATE OF SERVICE: 07/01/2019 PRIMARY CARE PROVIDER: Name unknown but it is back in [place], [place]. CHIEF COMPLAINT: Recurrent epistaxis. HISTORY OF PRESENT ILLNESS: A 73-year-old anticoagulated male for atrial fibrillation and hypertension presented early this morning to [facility] Emergency Room for recurrent, severe epistaxis. I was contacted by the emergency room physician after he bled 250 to 500 mL, estimated, while in the emergency room. Bilateral nasal balloon packs were placed and he was given 1 unit FFP and 5 mg vitamin K, INR initially 3.6, now 2.2 early this morning. Hematocrit 36 initially, now 33. No known interval bleeding since pack placement. Of note, first significant bleed occurred 6 weeks ago, possibly on the right side, although some silver nitrate cautery possibly performed by ENT on the left presumed anteriorly.. Recurrent intermittent bleeding less severe until required packing in [place] 1 week ago, yet again. AKUA, not using his CPAP, no other ENT complaints. The admit H and P and ER note from 07/01/2019 each reviewed. Past Medical History, Medications, Allergies, Social History, Review of Systems, Family History reviewed as above. PHYSICAL EXAMINATION: VITAL SIGNS: On the chart. GENERAL: Well-developed, well-nourished male, tired but able to become alert with speech. HEENT: Head is normocephalic, atraumatic. Ears: External ears are normal. Nose: Bilateral balloon packing in place, right slightly protruding and dry, left moist, some old blood seen. Oral cavity/oropharynx: Elongated palate and uvula but no blood in the posterior oropharynx. NECK: Soft and nontender. PROCEDURE: Left endoscopic control of epistaxis. Following verbal consent, the balloon packs were gently deflated and removed. Over the next 45 minutes, I suctioned endoscopically any clots from primarily the left nasal cavity and examined closely. The nose was intermittently packed with Afrin and lidocaine on cotton. The 2.7 mm 30-degree rigid nasal endoscope was passed bilaterally and the only suspicious area was an area of the left anterior septum, 2 cm from the vestibule, that was oozing. This was cauterized endoscopically in 2 layers until no bleeding could be elicited. Of note, there was no arterial pumping vessel visible at any point. There were scattered areas of irritated mucosa consistent with the packing itself. Otherwise, normal middle meatus and sphenoethmoidal recess and choana. I then trimmed a 2 cm piece of Merocel to place over the cauterized area which was then saturated with Afrin. He tolerated the procedure well without known complications. ASSESSMENT: 1. Recurrent epistaxis, possibly bilateral, in a supratherapeutic anticoagulated patient, reversal ongoing. 2. Atrial fibrillation. 3. Status post renal transplant. 4. Untreated obstructive sleep apnea. PLAN: As discussed in detail, I recommend followup in 3 days for packing removal, assuming there is no recurrent bleeding in the interim. We will moisturize the pack with saline, use Afrin for any bleeding on either side, and avoid any straining or bending over, no nose blowing. Per discussion with Dr. Jerome, she agrees to hold the Coumadin for 1 week in addition. The patient and his agree with the plan, understand and are appreciative. Peter Rendon - KH/fn/hl doc#: [id number]/job#: [id number] dd: 07/01/2019 12:33:00 dt: 07/01/2019 17:17:00 DICTATING MD/COPIES TO: Hector Fraire MD; Alicia Jerome, COPIES MNE: MARCK;
== END 2019-07-01 16:30 | disposition home or self-care (01) ==
LOC: ED 23:33 → AC 07-01 02:47
PROVIDERS: Admitting Provider Nurse Practitioner Adult Health; Emergency Provider Emergency Medicine; Visit Provider Nurse Practitioner Adult Health
DX: R04.0 Epistaxis (principal); Z79.01 Long term (current) use of anticoagulants; I48.20 Chronic atrial fibrillation, unspecified; J42 Unspecified chronic bronchitis; Z87.891 Personal history of nicotine dependence; R60.0 Localized edema; I10 Essential (primary) hypertension; E78.5 Hyperlipidemia, unspecified; G62.9 Polyneuropathy, unspecified; N18.6 End stage renal disease; Z94.0 Kidney transplant status; K21.9 Gastro-esophageal reflux disease without esophagitis; F10.10 Alcohol abuse, uncomplicated
CPT/HCPCS: 36415; 36430; 71045; 80048; 80053; 83735; 83880; 84484; 85014; 85018; 85025; 85610; 85730; 86900; 86901; 86927; 93005; 94640; 94762; 96361; 96365; 96375; 99284; G0378; P9016; J2930; J3430; J7507

== ENCOUNTER → 2019-07-03 12:47 | Outpatient (CLI) | payer MEDICARE, BC, SELFPAY ==
[2019-07-01 04:31] VITALS: BMI 33.5
[2019-07-03 13:42] LABS: INR 1.1 (0.9-1.3); Prothrombin Time 12.8 SECONDS (10.1-12.7)
== END ==
PROVIDERS: Referring Provider Internal Medicine; Visit Provider Internal Medicine
DX: R04.0 Epistaxis (principal); Z79.01 Long term (current) use of anticoagulants
CPT/HCPCS: 36415; 85610